=== PATIENT | female | born 1935 | race Caucasian/White ===

== ENCOUNTER → 2024-07-06 | Outpatient (CLI) | payer OTHER, SELFPAY ==
--- NOTE | 2024-07-06 | XR_ITS ---
Examination: PA lateral chest 2 views TECHNIQUE: Upright PA lateral chest 2 views Exam date and time: July 06, 2024 12:44 PM INDICATIONS: Patient fell 3 weeks ago with injury to the left chest, left chest pain FINDINGS: No significant cardiac enlargement No pneumothorax Prominent osteopenia Clavicles ribs appear intact Chronic osteoporotic compressions lower dorsal vertebral bodies IMPRESSION: No pneumothorax pulmonary contusion or hemothorax No acute rib fractures
--- NOTE | 2024-07-06 | XR_ITS ---
Examination: Ribs, left, with PA chest, 4 views Technique: Chest PA, RIBS AP, RPO, LPO, 4 views Exam date and time: June 28, 2024 1237 hours INDICATIONS: Patient fell 3 weeks ago with injury to the left chest, left rib pain Findings: Normal heart size No pneumothorax Prominent osteopenia No acute rib fractures IMPRESSION: No pneumothorax pulmonary contusion or hemothorax No acute rib fractures
--- NOTE | 2024-07-06 | XR_ITS ---
Examination: Thoracic lumbar spine 2 views TECHNIQUE: AP lateral thoracic spine lumbar spine 2 views Exam date and time: July 06, 2024 1237 hours INDICATIONS: Patient fell 3 weeks ago with injury to the back, back pain FINDINGS: No acute lumbar fracture Severe osteopenia Chronic osteoporotic compressions T12, T11, T10 Prominent thoracic spondylosis IMPRESSION: Severe osteopenia Chronic thoracic compression fractures as above If pain persists, consider CT scan thoracic spine without contrast follow-up
== END | disposition home or self-care (01) ==
PROVIDERS: PCP Internal Medicine; Referring Provider Internal Medicine; Visit Provider Internal Medicine
DX: S29.9XXA Unspecified injury of thorax, initial encounter (principal); W19.XXXA Unspecified fall, initial encounter; M85.88 Other specified disorders of bone density and structure, other site; M48.54XA Collapsed vertebra, not elsewhere classified, thoracic region, initial encounter for fracture
CPT/HCPCS: 71046; 71101; 72080